=== PATIENT | male | born 1965 | race Caucasian/White ===

== ENCOUNTER 2019-09-24 14:01 | Outpatient (CLI) | payer OTHER, SELFPAY ==
--- NOTE | ~2019-09-24 | XR_ITS ---
XR hip LT 2V w AP pelvis DATE: 09/24/2019 14:24 INDICATION: Left hip pain. TECHNIQUE: AP pelvis. AP and lateral views of left hip COMPARISON: None FINDINGS: No pelvic fracture or bone destruction. The pubic symphysis and sacroiliac joints are intac t. There is moderate moderate left hip osteoarthritis including moderate joint space narrowing and mi ld spurring. IMPRESSION: Left hip osteoarthritis Reviewed, dictated and finalized at location A. IMPRESSION: Left hip osteoarthritis
== END 2019-09-24 14:02 | disposition home or self-care (01) ==
LOC: ANHIMG 14:07
PROVIDERS: PCP Family Medicine; Visit Provider Physician Assistant
DX: M25.552 Pain in left hip (principal); G89.29 Other chronic pain; M16.12 Unilateral primary osteoarthritis, left hip
CPT/HCPCS: 73502

== ENCOUNTER 2019-10-22 12:36 | Outpatient (CLI) | payer OTHER, SELFPAY ==
--- NOTE | ~2019-10-22 | XR_ITS ---
EXAMINATION: XR lg joint inject/asp w image DATE: 10/22/2019 13:30 INDICATION: Left hip osteoarthritis. TECHNIQUE: A time-out was performed to verify the patient's name, date of , and procedure to b e performed. The procedure including the risks, benefits, and alternatives was discussed with the pat ient. Risks discussed included bleeding and infection. The patient understood the risks and agreed to proceed. The skin overlying the left hip joint was prepped and draped in usual sterile fashion. An esthetic was administered with 1% lidocaine subcutaneously. A 22 G needle was advanced under fluoros copic guidance into the joint. Injection of 1 mL of Omnipaque 240 confirmed intra-articular position of the needle. Subsequently, injectate consisting of 3 mL 0.25% Bupivacaine and 1.5 mL 10 mg/mL Daniel alog was instilled. The needle was removed and the entry site was cleaned and dressed. There were n o immediate complications. Fluoroscopy exposure time was 0.1 minutes. The total number of images was 3. FINDINGS: Real-time fluoroscopy demonstrates the needle in the left hip joint. Patient's pain prior t o procedure:7/10. Patient's pain following the procedure: 0/10. IMPRESSION: 1. Left facet joint injection of local anesthetic and steroid with decrease in the patient's presenti ng pain. Reviewed, dictated and finalized at location A. IMPRESSION: 1. Left facet joint injection of local anesthetic and steroid with decrease in the patient's presenting pain.
== END 2019-10-22 12:37 | disposition home or self-care (01) ==
PROVIDERS: PCP Family Medicine; Visit Provider Orthopaedic Surgery
DX: M16.12 Unilateral primary osteoarthritis, left hip (principal)
CPT/HCPCS: 20610; 77002; J3301; Q9966

== ENCOUNTER 2019-12-16 11:28 | Outpatient (CLI) | payer OTHER, SELFPAY ==
--- NOTE | ~2019-12-16 | XR_ITS ---
XR lumbar spine 2-3V DATE: 12/16/2019 11:46 INDICATION: Low back pain, left hip pain. No injury. TECHNIQUE: AP, lateral, coned lateral lumbosacral views COMPARISON: None FINDINGS: Incidentally noted are surgical clips at the right upper quadrant of the abdomen, consisten t with cholecystectomy. Normal alignment of the lumbar spine. No fracture or bone destruction. The lumbar and included lower thoracic pedicles are intact. Lumbar and lumbosacral interspaces are relatively preserved. No spondyl olisthesis. The sacroiliac joints appear intact. IMPRESSION: No significant abnormality of the lumbar spine Status post cholecystectomy Reviewed, dictated and finalized at location B.
== END 2019-12-16 11:29 | disposition home or self-care (01) ==
PROVIDERS: PCP Family Medicine; Visit Provider Physician Assistant
DX: M25.552 Pain in left hip (principal); M54.5 Low back pain; Z90.49 Acquired absence of other specified parts of digestive tract
CPT/HCPCS: 72100

== ENCOUNTER → 2022-01-15 13:42 | Outpatient (CLI) | payer OTHER, SELFPAY ==
--- NOTE | ~2022-01-15 | US_ITS ---
US scrotum doppler INDICATION: Left testicle lump with pain for one month TECHNIQUE: Testicular sonogram utilizing grayscale and color Doppler FINDINGS: The testes are normal in size and appearance. No focal lesions are seen. The right testes measures 4.6 x 2.3 x 3.4 cm centimeters, and the left testis measures 4.9 x 2.2 x 3.3 cm cm. There is normal vascular flow to both testes. There are bilateral epididymal cysts, largest on the right measuring 6 mm and on the left measuring 8 mm. There is a small left hydrocele. There are bilateral varicoceles. IMPRESSION: 1. Bilateral varicoceles. 2: Bilateral epididymal cysts. 3: Small left hydrocele. Reviewed, dictated and finalized at location A.
== END ==
PROVIDERS: PCP Family Medicine; Visit Provider Family Medicine
DX: N50.82 Scrotal pain (principal); N50.9 Disorder of male genital organs, unspecified; I86.1 Scrotal varices; N50.3 Cyst of epididymis; N43.3 Hydrocele, unspecified
CPT/HCPCS: 76870; 93976

== ENCOUNTER 2023-12-04 17:18 | Emergency (ER) | payer OTHER, SELFPAY ==
--- NOTE | 2023-12-04 17:29 | ED.EYEPROB ---
HPI - Eye Problem General Chief complaint: Eye Problems Stated complaint: foreign object left eye Time Seen by Provider: 12/04/23 17:40 Source: patient, RN notes reviewed and old records reviewed Mode of arrival: ambulatory Limitations: no limitations History of Present Illness HPI Narrative: 58 year old male patient with complaints of foreign body sensation in his left eye after drilling on deck at his home prior to arrival. Patient reports that he was wearing safety glasses at that time. Left eye is red and watering with foreign body sensation reported in his left eye. Patient reports that he irrigated his eye at home prior to coming to clinic. Visual acuity 20/20 bilateral eyes with glasses. Patient denies any visual changes or sharp ain to his left eye. MD chief complaint: eye redness and foreign body Onset (ago): minute(s) (prior to arrival in clinic) Onset description: sudden Location: left eye Eye Symptoms: redness, foreign body sensation and other (watering) Place: home Severity scale (1-10): 2 Treatments Prior to Arrival: irrigated eye Related Data Home Medications Medication Instructions Recorded Confirmed meloxicam 15 mg tablet 15 mg PO DAILY 06/03/22 12/04/23 Allergies Allergy/AdvReac Type Severity Reaction Status Date / Time No Known Allergies Allergy Verified 12/04/23 17:35 Review of Systems Review of Systems: CONSTITUTIONAL: Denies fever, chills, or sweats. EYES: Denies visual changes. Reports redness,, irritation,foreign body sensation to left eye ENT: Denies rhinorrhea, congestion, sore throat, or otalgia. CARDIOVASCULAR: Denies chest pain, palpitations, or edema. RESPIRATORY: Denies cough or dyspnea. SKIN: Denies rash or itching. NEUROLOGIC: Denies headache All systems reviewed & are unremarkable except as noted in HPI and below PMFSH Past Medical History Medical History (Updated 12/06/23 @ 09:55 by [place] Sierra NP) Elevated triglycerides with high cholesterol Left hip pain Osteoarthritis of left hip Surgical History Surgical History (Updated 12/06/23 @ 09:43 by [place] Sierra NP) History of cholecystectomy Family History Family History Father Hypertension Family history of diabetes mellitus in first degree relative Family history of coronary artery disease Mother Hypertension Family history of chronic obstructive pulmonary disease Social History Social History Smoking status: Former smoker Tobacco type: cigarettes Second hand tobacco smoke exposure: Yes Smoking end date: 05/26/13 Alcohol intake: current Substance use: never Substance use type: does not use Living arrangements: with family Occupation/Education: occupation Gender identity (if verbalized by the patient): Male Sexual Orientation (if Verbalized by the Patient): Straight or Heterosexual Comments At time of signature, agree with nursing past medical, surgical, social and family history. There is no relevant family history pertinent to the presenting complaint Exam Narrative: GENERAL: Well-appearing, well-nourished, and in no acute distress. HEAD: Normocephalic, atraumatic. EYES: PERRLA and EOMI. Upper and lower eyelids unremarkable. No periorbital cellulitis noted. Sclera injected foreign body sensation, see procedure note ENT: Nares clear, no rhinorrhea or epistaxis. Mucous membranes moist. NECK: Supple.no lymphadenopathy CHEST: Clear to auscultation. No respiratory distress.SAO2 100% on room air HEART: Regular rate and rhythm. No murmur heard. Normal peripheral pulses. SKIN: Warm, dry, no rash. NEURO: No focal deficits. Alert and oriented x3. Course Course Emergency Course: Patient is aware of diagnosis, understands and agrees to treatment plan. Anticipatory guidance given. Patient agrees to follow-up as directed and is aware of reasons to seek c
[2023-12-04 17:33] VITALS: BP 125/80; PULSE 73; RESP 18; TEMP 36.9; O2SAT 100
[2023-12-04 17:35] VITALS: BP 125/80; PULSE 73; RESP 18; TEMP 36.9; O2SAT 100
[2023-12-04] MEDS: DACRIOSE EYE IRRIGATION 118 ML BOTTLE LEFT EYE (17:41)
[2023-12-04] MEDS: FLUORESCEIN SOD 1 MG/STRIP LEFT EYE (17:41)
[2023-12-04] MEDS: TETRACAINE HCL 0.5% OPHTH SOLN 4 ML BTL LEFT EYE (17:41)
== END 2023-12-04 18:32 | disposition home or self-care (01) ==
PROVIDERS: Emergency Provider Registered Nurse; PCP Family Medicine
DX: T15.12XA Foreign body in conjunctival sac, left eye, initial encounter (principal); W44.8XXA Other foreign body entering into or through a natural orifice, initial encounter; Z87.891 Personal history of nicotine dependence; E78.2 Mixed hyperlipidemia; M16.12 Unilateral primary osteoarthritis, left hip
CPT/HCPCS: 65205; 99213; A9270; G0463

== ENCOUNTER 2024-07-26 14:33 | Outpatient (CLI) | payer OTHER, SELFPAY | END 2024-07-26 14:34 | disposition home or self-care (01) | PROVIDERS: PCP Family Medicine; Visit Provider Family Medicine | DX: M79.644 Pain in right finger(s) (principal) | CPT/HCPCS: 73120 ==